=== PATIENT | male | born 1985 | race Caucasian/White ===

== ENCOUNTER → 2023-03-28 13:02 | Outpatient (CLI) | payer BC, SELFPAY ==
[2023-03-28 12:47] LABS: Basophils % 0.5 % (0.1-2.0); Eosinophils # 0.2 K/mm3 (0.0-0.4); Eosinophils % 3.9 % (0.1-12.0); Hematocrit 47.4 % (42.0-52.0); Hemoglobin 15.6 g/dL (14.1-18.0); Lymphocytes # 1.3 K/mm3 (0.7-4.5); Lymphocytes % 23.8 % (10-50); Mean Corpuscular Hemoglobin 31.7 pg (27.0-31.2); Mean Platelet Volume 7.9 fl (7.4-10.4); Monocytes # 0.3 K/mm3 (0.1-1.0); Monocytes % 6.2 % (1.7-9.3); Neutrophils # 3.6 K/mm3 (1.8-7.8); Neutrophils % 65.6 % (37.0-80.0); Platelet Count 175 K/mm3 (142-424); Red Blood Count 4.93 M/mm3 (4.60-6.20); Red Cell Distribution Width 12.8 % (11.5-17.5); White Blood Count 5.5 K/mm3 (4.8-10.8)
[2023-03-28 12:49] LABS: Alanine Aminotransferase 25 U/L (12-78); Albumin Level 5.3 g/dl (3.5-5.0); Alkaline Phosphatase 61 U/L (38-126); Anion Gap 11.4 mEq/L (5-15); Aspartate Amino Transferase 32 U/L (17-59); Bilirubin,Total 0.6 mg/dl (0.2-1.3); Blood Urea Nitrogen 11 mg/dl (9-20); Calcium 9.5 mg/dl (8.4-10.2); Carbon Dioxide 29 mmol/L (22.0-30.0); Chloride 103 mmol/L (98-107); Chol/HDL Ratio 1.5 (1-3.5); Cholesterol 155 mg/dl (140-200); Estimated Glomerular Filt Rate 128 ml/min (>60); GFR (African American) 154 ML/MIN (>60); Globulin 2.7 g/dL (1.3-3.2); Glucose 140 mg/dl (74-100); HDL Cholesterol 103 mg/dl (40-60); Potassium 4.4 mmoL/L (3.5-5.1); Sodium 139 mmol/L (136-145); Triglycerides 51 mg/dl (30-150); VLDL Cholesterol 10 mg/dL (0-40)
[2023-03-28 13:00] LABS: Direct LDL Cholesterol 59.42 mg/dL (100-129)
[2023-03-28 13:05] LABS: 25-OH Vitamin D, Total 22.5 ng/mL (30-100)
[2023-03-28 13:09] LABS: Hemoglobin A1C 4.8 % (4.0-6.0)
[2023-03-28 13:20] LABS: Thyroid Stimulating Hormone 1.88 uIU/mL (0.465-4.68)
== END ==
PROVIDERS: PCP Emergency Medicine; Visit Provider Emergency Medicine
DX: R20.0 Anesthesia of skin (principal); G43.909 Migraine, unspecified, not intractable, without status migrainosus; M54.16 Radiculopathy, lumbar region; E55.9 Vitamin D deficiency, unspecified
CPT/HCPCS: 80053; 80061; 82306; 83036; 84443; 85025

== ENCOUNTER → 2023-04-11 13:57 | Outpatient (CLI) | payer BC, SELFPAY ==
--- NOTE | 2023-04-11 14:06 | MR_ITS ---
FINAL REPORT CLINICAL HISTORY: migraines and numbness IN LEFT ARM, NECK PAIN FINDINGS: Multiplanar MR imaging of the cervical spine was performed without contrast. On the sagittal T2-weighted images, disc degeneration is seen at multiple levels. There is no evidence of fracture. The vertebral alignment is normal. The cervical spinal cord has an unremarkable appearance without evidence of mass, edema or syrinx. No significant canal stenosis is identified. The cervicomedullary junction is normal. C2-3: There is no significant canal stenosis or neural foraminal narrowing. C3-4: Small central disc protrusion with uncovertebral osteophytes and mild left neuroforaminal narrowing. C4-5: Uncovertebral osteophytes with mild left neuroforaminal narrowing. C5-6: Annular disc bulge with uncovertebral osteophytes. There is mild right and moderate left neuroforaminal narrowing. C6-7: Annular disc bulge with mild bilateral neuroforaminal narrowing. C7-T1: There is no significant canal stenosis or neural foraminal narrowing. IMPRESSION: Multilevel degenerative disc disease with mild to moderate neuroforaminal narrowing as above. Reviewed, Interpreted and Dictated by Eduin Powell III, MD Transcribed by Treasure Rdz Authenticated and [facility]
== END ==
LOC: RAD 13:58
PROVIDERS: PCP Emergency Medicine; Visit Provider Emergency Medicine
DX: G43.909 Migraine, unspecified, not intractable, without status migrainosus (principal); R20.0 Anesthesia of skin
CPT/HCPCS: 72141; 76376